=== PATIENT | male | born 1955 | race Caucasian/White ===

== ENCOUNTER 2020-08-28 13:52 | Emergency (ER) | payer OTHER, SELFPAY ==
--- NOTE | 2020-08-28 | XR_ITS ---
EXAMINATION: XR FINGER, RIGHT CLINICAL INFORMATION: Laceration right 3rd digit with circular saw COMPARISON: None TECHNIQUE: AP view right hand is performed along with 2 views right third finger for a total of 3 views. FINDINGS: There is comminuted fracture involving the medial aspect third finger distal phalangeal tuft. There is punctate gritty debris overlying the lacerated soft tissue at the fingertip. There is no gas tracking in the soft tissue planes. No destructive process. Benign-appearing circumscribed subchondral cyst is present base 1st metacarpal measuring 0.9 x 1.1 cm. There are also smaller circumscribed cysts capitate, head finger middle phalanx, right base fourth finger proximal phalanx. XR/XR finger RT min 2V IMPRESSION: Comminuted fracture third finger distal phalangeal tuft on medial side. Punctate gritty foreign body overlying lacerated soft tissue.
[2020-08-28 15:31] VITALS: BP 156/82; PULSE 65; RESP 16; TEMP 36.5; O2SAT 100; BMI 25.0
--- NOTE | 2020-08-28 15:47 | ED.EXTPRO ---
HPI - Extremity Problem General Chief complaint: Extremity Injury, Upper Stated complaint: finger lac - work related Time Seen by Provider: 08/28/20 15:40 Source: patient Mode of arrival: ambulatory Limitations: no limitations History of Present Illness HPI Narrative: 65 y/o male presenting with right middle finger laceration that he sustained yesterday while at work while using a circular table saw. He was able to control the bleeding yesterday and did not seek medical attention. This morning he bumped the finger and bleeding recurred. He is not up to date on his tetanus shot. He can move the finger tip but with pain. He denies fever, chills, redness of the skin or drainage of pus. MD Complaint: joint paint Onset (ago): day(s) (1) Pain Consistency: constant Location: right and upper extremity Severity scale (1-10): 6 Quality: aching Radiation: none Relieving factors: cold therapy and immobilization Exacerbating factors: range of motion and palpation Associated symptoms: denies other symptoms Related Data Previous Rx's Medication Instructions Recorded cephalexin [Keflex] 500 mg PO QID #28 cap 08/28/20 ibuprofen 600 mg PO Q8H PRN #15 tab 08/28/20 Allergies Allergy/AdvReac Type Severity Reaction Status Date / Time No Known Allergies Allergy Verified 08/28/20 15:31 Review of Systems Review of Systems: Constitutional: No Fever, No Chills Cardiovascular: No Chest Pain, No SOB Respiratory: No Cough, No Sputum Gastrointestinal: No Nausea, No Vomiting Musculoskeletal: + joint pain, No Myalgias Skin: + Skin Lesions, No rash Neuro: No Weakness, No Numbness Heme/Lymph: No Bruising PMFSH Past Medical History Attestation statement: The following information was validated with the patient. Medical History (Updated 08/28/20 @ 16:32 by ANDRES Zaragoza) Knee torn cartilage Social History Social History Smoked in Last 30 Days: No Advance Directives: No Advance Directives Information Provided: Yes Physical Exam Vital Signs: Vital Signs: Last Vital Signs Temp 97.7 F 08/28/20 15:31 Pulse 65 08/28/20 15:31 Resp 16 08/28/20 15:31 BP 156/82 H 08/28/20 15:31 Pulse Ox 100 08/28/20 15:31 Body Mass Index 25.0 Appearance: Alert. Oriented X3. No acute distress. HEENT: normal inspection CVS: Normal heart rate and rhythm. Pulses normal. Respiratory: No respiratory distress. Skin: Skin warm and dry. Normal skin color. Normal skin turgor. No rashes. Extremities: right middle finger with laceration to the tip that extends down into the nail, nail is in several pieces. bleeding is controlled. NV intact. Able to bend at DIP joint. No surrounding erythema. Neuro: Oriented X 3. No motor deficit. No sensory deficit. Course Course Course Narrative: 65 y/o male presenting with laceration to right middle finger sustained on a saw >24 hours ago. No active bleeding on arrival, patient had it tightly wrapped. Fingernail is involved. Concern for possible fracture. Unfortunately given delayed presentation it is not amenable to conventional closure. Not UTD on tetanus, ordered for now as well as dose of Keflex. Will get XR to further assess. Reevaluation(s) Reevaluation #1: XR showing: comminuted fracture of the third finger distal phalangeal tuft on the medial side, punctate foreign body overlying lacerated soft tissue. Wound was explored, unable to locate FB. Wound was cleansed and irrigated extensively. Steri strips applied to gently approximate. Will continue ABX and refer to hand surgeon. Discharge Plan Discharge Clinical Impression: Fracture of distal phalanx of finger Qualifiers: Encounter type: initial encounter Finger: middle finger Fracture type: open Fracture alignment: nondisplaced Laterality: right Qualified Code(s): S62.662B - Nondisplaced fracture of distal phalanx of right middle finger, initial encounter for open fracture Patient Disposition: Home, Self-Care Instructions: Finger Fracture (ED), Laceration Without Closure (ED) Additional Instructions: X-ray showed tip of your finger is fractured. Keep wound clean and dry for the next 24 hours. After that you can wash gently with soap and water, then pat dry. Wear the splint to protect your broken finger. If bleeding recurs hold pressure for 5-10 minutes. Elevate and ice your hand when possible. Take the prescribed antibiotics to help prevent infection. Follow up with the Hand Specialist next week. If you develop persistent bleeding, numbness, tingling or loss of function come back to the ER for further evaluation. Prescriptions: New cephalexin [Keflex] 500 mg capsule 500 mg PO QID Qty: 28 RF: 0 ibuprofen 600 mg tablet 600 mg PO Q8H PRN (Reason: pain) Qty: 15 RF: 0 Referrals: Karen Young MD [Physician] - 5 days (finger fx, retained FB)
[2020-08-28] MEDS: cephALEXin 500 MG CAPSULE PO (16:19)
== END 2020-08-28 17:06 | disposition home or self-care (01) ==
PROVIDERS: Emergency Provider Internal Medicine
DX: S62.662B Nondisplaced fracture of distal phalanx of right middle finger, initial encounter for open fracture (principal); W31.2XXA Contact with powered woodworking and forming machines, initial encounter; Y93.89 Activity, other specified; Y92.9 Unspecified place or not applicable; Y99.0 Civilian activity done for income or pay
CPT/HCPCS: 29130; 73140; 90471; 90715; 99283; 99284

== ENCOUNTER → 2020-09-03 14:17 | Outpatient (BNVA) | payer OTHER, SELFPAY | PROVIDERS: Visit Provider Orthopaedic Surgery | DX: S62.632B Displaced fracture of distal phalanx of right middle finger, initial encounter for open fracture (principal); S61.319D Laceration without foreign body of unspecified finger with damage to nail, subsequent encounter | CPT/HCPCS: 99202 ==

== ENCOUNTER → 2020-09-17 09:04 | Outpatient (BNVA) | payer OTHER, SELFPAY | PROVIDERS: Visit Provider Orthopaedic Surgery | DX: S62.632D Displaced fracture of distal phalanx of right middle finger, subsequent encounter for fracture with routine healing (principal); S61.319D Laceration without foreign body of unspecified finger with damage to nail, subsequent encounter | CPT/HCPCS: 99212 ==

== ENCOUNTER → 2020-11-18 08:22 | Outpatient (BNVA) | payer OTHER, SELFPAY | PROVIDERS: Visit Provider Orthopaedic Surgery | DX: S61.319D Laceration without foreign body of unspecified finger with damage to nail, subsequent encounter (principal); S62.632D Displaced fracture of distal phalanx of right middle finger, subsequent encounter for fracture with routine healing | CPT/HCPCS: 99212 ==